=== PATIENT | female | born 1995 | race Caucasian/White ===

== ENCOUNTER 2017-07-04 12:17 | Emergency (ER) | payer SELFPAY ==
[~2017-07-04 12:17] MED LIST: ALB6.7R INH; ETON68IM SQ; FLUC150T40 PO; FLUT1DIS27 IH; HYDR-4309 PO; MEDR150D IM; METH4TAB66 PO; METR-160 PO; PRED-1 PO; PROM-110 PO; [UNRECOGNIZED DRUG - CODE] PO
[2017-07-04] MEDS ORDERED: ETON68IM SQ (12:32)
[2017-07-04] MEDS ORDERED: DOXYCYCLINE HYCL 100 MG TAB PO ONE (13:55)
[2017-07-04] MEDS ORDERED: KETOROLAC 30 MG/ML VIAL IVP ONE (13:55)
--- NOTE | 2017-07-04 16:16 | ER Report ---
History and Physical Time Seen By MD: 12:30 Hx. 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. She presents to the emergency department with painful small mass is under both axilla as well as in her left breast. The masses started within the past week. She has a history of polycystic ovarian disease and a remote history of a benign bone tumor. She states that she has had breast masses in the past which have been attributed to hormonal changes. No history of breast cancer in her family. No weight loss, no fever chills, no discharge from her nipples. She also has some mild flulike symptoms of myalgias but no URI symptoms. No other complaints Remainder of the 14 system rev: Yes Allergies: Coded Allergies: cole (Verified Allergy, Intermediate, UNKNOWN, 07/06/16) coconut oil (Verified Allergy, Intermediate, HIVES, 07/06/16) milk (Verified Allergy, Intermediate, SICK TO STOMACH, 07/06/16) egg (Verified Allergy, Mild, rash, 07/06/16) Home Meds Active Scripts Doxycycline Hyclate (DOXYCYCLINE HYCLATE) 100 Mg Capsule, 100 MG PO BID for 14 Days, #28 CAPSULE Prov:ANSELMO OROURKE MD 07/04/17 Reported Medications Etonogestrel (NEXPLANON) 68 Mg Implant, 68 MG SQ DIRECTED, IMPLANT 07/04/17 Reviewed Nurses Notes: Yes Old Medical Records Reviewed: Yes Hx Smoking: No Smoking Status: Never Smoker Hx Substance Use Disorder: No Hx Alcohol Use: No Constitutional Vital Sign - Last 24 Hours 07/04/17 07/04/17 07/04/17 07/04/17 12:17 12:22 12:26 12:47 Temp 97.5 Pulse ??? 105 104 Resp 16 B/P (MAP) 128/74 128/74 (92) Pulse Ox 98 96 O2 Delivery Room Air 07/04/17 07/04/17 07/04/17 07/04/17 13:00 13:02 13:15 13:17 Pulse 76 74 B/P (MAP) 113/85 (94) 99/71 (80) Pulse Ox 96 100 07/04/17 07/04/17 07/04/17 07/04/17 13:22 13:30 13:37 13:45 Pulse 81 91 B/P (MAP) 103/70 (81) 118/72 (87) Pulse Ox 96 99 07/04/17 07/04/17 07/04/17 07/04/17 13:52 14:00 14:07 14:15 Pulse 82 81 B/P (MAP) 110/71 (84) ???/??? (1665) Pulse Ox 97 96 07/04/17 07/04/17 07/04/17 07/04/17 14:30 14:37 14:45 14:52 Pulse 82 85 B/P (MAP) ???/??? (1665) ???/??? (1665) Pulse Ox 97 07/04/17 07/04/17 07/04/17 07/04/17 15:07 15:12 15:27 15:42 Pulse 91 ??? 86 85 Pulse Ox 97 95 95 07/04/17 07/04/17 07/04/17 07/04/17 15:57 16:04 16:12 16:27 Pulse ??? 87 84 B/P (MAP) 108/69 (82) Pulse Ox 96 98 07/04/17 07/04/17 07/04/17 16:42 16:57 17:01 Temp 97.4 Pulse ? Pulse Ox 81 Physical Exam General Appearance: The patient is alert, has no immediate need for airway protection and no current signs of toxicity. Eyes: Pupils equal and round no injection. Respiratory: Chest is non tender, lungs are clear to auscultation. Breast exam: Normal external exam. No changes to skin, no nipple discharge. Multiple small, mobile masses in right breast Cardiac: regular rate and rhythm Gastrointestinal: Abdomen is soft and non tender, no masses, bowel sounds normal. Skin: Multiple small, erythematous, painful masses to b/l axilla. No fluctuance to suggest abscess DIFFERENTIAL DIAGNOSIS: After history and physical exam differential diagnosis was considered for breast cancer, lymphoma, folliculitis, benign hormonal breast masses Medical Decision Making Data Points Result Diagram: 07/04/17 1253 07/04/17 1253 Laboratory Hematology Test 07/04/17 12:22 07/04/17 12:53 Urine Color Yellow Urine Clarity Clear Urine pH 5.0 pH (4.8-9.5) Urine Specific [place] 1.013 Urine Protein Negative mg/dL (NEGATIVE) Urine Glucose (UA) Negative mg/dL (NEGATIVE) Urine Ketones Trace mg/dL (NEGATIVE) Urine Blood Negative (NEGATIVE) Urine Nitrite Negative (NEGATIVE) Urine Bilirubin Negative (NEGATIVE) Urine Urobilinogen Negative mg/dL (0.2-1.9) Urine Leukocyte Esterase Negative (NEGATIVE) Urine RBC <1 /HPF (0-2/HPF) Urine WBC None /HPF (0-5/HPF) Urine Squamous Epithelial Cells Many /LPF (</=FEW) Urine Transitional Epithelial Cells Few /LPF (NONE-FEW) Urine Bacteria Negative /HPF (NONE-FEW) Urine Mucus Few /HPF (NONE-FEW) Urine HCG, Qualitative Negative (NEGATIVE) Red Blood Count 4.79 M/uL (4.17-5.56) Mean Corpuscular Volume 91.3 fL (80.0-96.0) Mean Corpuscular Hemoglobin 32.0 pg (26.0-33.0) Mean Corpuscular Hemoglobin Concent 35.0 g/dL (32.0-36.0) Red Cell Distribution Width 12.9 % (11.5-14.5) Mean Platelet Volume 7.4 fL (7.2-11.1) Sodium Level 140 mmol/L (137-145) Potassium Level 3.7 mmol/L (3.5-5.0) Chloride Level 102 mmol/L (98-107) Carbon Dioxide Level 24 mmol/L (22-31) Blood Urea Nitrogen 11 mg/dl (7-18) Creatinine 0.80 mg/dl (0.52-1.04) Glomerular Filtration Rate Calc > 60.0 Random Glucose 107 mg/dl (75-110) Calcium Level 9.9 mg/dl (8.4-10.2) Monoscreen Negative (NEGATIVE) Chemistry Test 07/04/17 12:22 07/04/17 12:53 Urine Color Yellow Urine Clarity Clear Urine pH 5.0 pH (4.8-9.5) Urine Specific [place] 1.013 Urine Protein Negative mg/dL (NEGATIVE) Urine Glucose (UA) Negative mg/dL (NEGATIVE) Urine Ketones Trace mg/dL (NEGATIVE) Urine Blood Negative (NEGATIVE) Urine Nitrite Negative (NEGATIVE) Urine Bilirubin Negative (NEGATIVE) Urine Urobilinogen Negative mg/dL (0.2-1.9) Urine Leukocyte Esterase Negative (NEGATIVE) Urine RBC <1 /HPF (0-2/HPF) Urine WBC None /HPF (0-5/HPF) Urine Squamous Epithelial Cells Many /LPF (</=FEW) Urine Transitional Epithelial Cells Few /LPF (NONE-FEW) Urine Bacteria Negative /HPF (NONE-FEW) Urine Mucus Few /HPF (NONE-FEW) Urine HCG, Qualitative Negative (NEGATIVE) White Blood Count 8.8 k/uL (4.5-11.0) Red Blood Count 4.79 M/uL (4.17-5.56) Hemoglobin 15.3 g/dL (12.0-16.0) Hematocrit 43.7 % (34.0-47.0) Mean Corpuscular Volume 91.3 fL (80.0-96.0) Mean Corpuscular Hemoglobin 32.0 pg (26.0-33.0) Mean Corpuscular Hemoglobin Concent 35.0 g/dL (32.0-36.0) Red Cell Distribution Width 12.9 % (11.5-14.5) Platelet Count 295 K/uL (150-450) Mean Platelet Volume 7.4 fL (7.2-11.1) Glomerular Filtration Rate Calc > 60.0 Calcium Level 9.9 mg/dl (8.4-10.2) Monoscreen Negative (NEGATIVE) Urinalysis Test 07/04/17 12:22 Urine Color Yellow Urine Clarity Clear Urine pH 5.0 pH (4.8-9.5) Urine Specific [place] 1.013 Urine Protein Negative mg/dL (NEGATIVE) Urine Glucose (UA) Negative mg/dL (NEGATIVE) Urine Ketones Trace mg/dL (NEGATIVE) Urine Blood Negative (NEGATIVE) Urine Nitrite Negative (NEGATIVE) Urine Bilirubin Negative (NEGATIVE) Urine Urobilinogen Negative mg/dL (0.2-1.9) Urine Leukocyte Esterase Negative (NEGATIVE) Urine RBC <1 /HPF (0-2/HPF) Urine WBC None /HPF (0-5/HPF) Urine Squamous Epithelial Cells Many /LPF (</=FEW) Urine Transitional Epithelial Cells Few /LPF (NONE-FEW) Urine Bacteria Negative /HPF (NONE-FEW) Urine Mucus Few /HPF (NONE-FEW) Urine HCG, Qualitative Negative (NEGATIVE) EKG/Imaging Imaging Results: Ultrasound of the axilla and breasts was obtained. The results of the study are c/w folliculitis. The study was read by the radiologist. I viewed the images myself on the PACS system. ED Course/Re-evaluation ED Course This is a 21-year-old female who presented to the emergency department with bilateral painful erythematous masses under her axilla and reportedly also painful masses in her left breast. No weight loss. Ultrasound negative for evidence of breast malignancy. Ultrasound and history and physical are consistent with folliculitis. The patient was started on doxycycline by mouth twice a day and will follow-up with Kenn Hien in the [facility] [place] [facility] next [place]. Decision to Disposition Date: Jul 04, 2017 Decision to Disposition Time: 17:18 Depart Departure Latest Vital Signs Vital Signs Date Time Temp Pulse Resp B/P (MAP) Pulse Ox O2 Delivery O2 Flow Rate FiO2 07/04/17 17:01 97.4 07/04/17 16:57 ??? 81 07/04/17 16:04 108/69 (82) 07/04/17 12:22 16 Room Air Impression: Primary Impression: Folliculitis Condition: Improved Disposition: HOME OR SELF-CARE Referrals: [facility] New Scripts Doxycycline Hyclate (DOXYCYCLINE HYCLATE) 100 Mg Capsule 100 MG PO BID for 14 Days, #28 CAPSULE Prov: ANSELMO OROURKE MD 07/04/17 Departure Forms: Medications Reconciliation, Patient Portal Information, ER Transition Record Patient Instructions: Folliculitis (ED) ANSELMO OROURKE MD Jul 04, 2017 16:16
--- NOTE | 2017-07-04 16:40 | RADIOLOGY IMAGING REPORT ---
FACILITY: [facility] [place] PATIENT NAME: DONNIE JOEL : [id number] MR: [id number] V: [id number] EXAM DATE: ORDERING PHYSICIAN: ANSELMO OROURKE TECHNOLOGIST: Mil Art PROCEDURE:US BILATERAL BREAST COMPARISON:None. INDICATIONS:masses in vicky axilla/breasts/ HISTORY: Bilateral breast pain and pain in both axilla. FINDINGS: Right breast: The Right breast was scanned from the 12-3 o'clock position and 7 o'clock position as well as the Right axilla. No solid or cystic masses are seen in the areas imaged. An island of prominent tissue in the 8 o'clock position, 6cm from nipple was noted. Imaging of the Right axilla demonstrates a small subcutaneous sebaceous cyst measuring 5mm which does not communicate with the skin. Physical exam demonstrated some folliculitis from shaving. A lymph node measuring 1.4 x 2.2 x 0.6cm was noted with a slightly thickened cortex but normal fatty hilum. The superior Left breast was imaged including the Left axilla. Imaging of the superior Left breast is negative. No solid or cystic lesions are seen. Imaging of the Left axilla is also negative. DIAGNOSTIC CATEGORY 2--BENIGN FINDING. RECOMMENDATIONS: CLINICAL EVALUATION. IMPRESSION: BIRADS 2: Benign finding No explanation for the patient's symptoms of axillary or breast pain. A small Right axillary subcutaneous sebaceous cyst measuring 4mm was noted which does not communicate with the skin. The patient had mild folliculitis in both arm pits from shaving. Recommend clinical management. Recommend the patient begin screening mammography at the age of 40. The patient's breast pain should otherwise be managed clinically. Dictated by: Hector Bernal M.D. on 07/04/2017 at 15:46 Transcribed by: FRANK on 07/04/2017 at 16:08 Approved by: Hector Bernal M.D. on 07/04/2017 at 16:39 [facility]
[2017-07-04] MEDS ORDERED: DOXY-181 PO (17:13)
[2017-07-04 17:15] VITALS: BP 117/65
== END 2017-07-04 17:27 | disposition home or self-care (01) ==
LOC: ER 12:22
DX: L73.9 Follicular disorder, unspecified (principal)
CPT/HCPCS: 76641; 81001; 81025; 85027; 86308; 96374; 99284; J1885; 82310; 82374; 82435; 82565; 82947; 84132; 84295; 84520

== ENCOUNTER 2018-08-01 21:15 | Emergency (ER) | payer OTHER ==
[~2018-08-01 21:15] MED LIST changes: +DOXY-181 PO; -HYDR-4309 PO; +HYDR-653 PO; -METR-160 PO; +METR500T15 PO
--- NOTE | 2018-08-01 21:40 | ER Report ---
History and Physical Time Seen By MD: 21:40 Hx. of Stated Complaint: N/V/D ALL DAY. CHEST PAIN, SHORT OF BREATH, FEELS CONFUSED, KIDNEY PAIN, ABDOMINAL PAIN HPI/ROS CHIEF COMPLAINT: Multiple symptoms, nausea/vomiting/diarrhea, multiple aches and pains, chest and abdominal pain HISTORY OF PRESENT ILLNESS: This is a 22-year-old female. She has been having nausea and vomiting and diarrhea all day long. She feels a little short of breath. Feeling very weak and tired. Has some left lower abdominal pain and feels like some pain in her kidneys. Also some chest pain. Also pain throughout her muscles and joints. Has been having some fevers and chills. Has not been able to keep a lot of fluid down and is urinating much less. [place] like she had to go the bathroom right before coming in and only urinated a small amount. She also has a history of endometriosis and is currently on her period. Allergies: Coded Allergies: cole (Verified Allergy, Intermediate, UNKNOWN, 07/06/16) coconut oil (Verified Allergy, Intermediate, HIVES, 07/06/16) milk (Verified Allergy, Intermediate, SICK TO STOMACH, 07/06/16) egg (Verified Allergy, Mild, rash, 07/06/16) Home Meds Active Scripts Ondansetron 4 Mg Odt (ONDANSETRON 4 MG ODT) 4 Mg Tab.rapdis, 4 MG PO Q6H PRN for NAUSEA/VOMITING, #20 TAB 0 Refills Prov:SUSAN GIBBONS MD 08/02/18 Ketorolac Tromethamine (KETOROLAC TROMETHAMINE) 10 Mg Tab, 10 MG PO Q6H PRN for PAIN, #12 TAB 0 Refills Prov:SUSAN GIBBONS MD 08/02/18 Doxycycline Hyclate (DOXYCYCLINE HYCLATE) 100 Mg Capsule, 100 MG PO BID for 14 Days, #28 CAPSULE Prov:ANSELMO OROURKE MD 07/04/17 Reported Medications Etonogestrel (NEXPLANON) 68 Mg Implant, 68 MG SQ DIRECTED, IMPLANT 07/04/17 Reviewed Nurses Notes: Yes Hx Smoking: No Smoking Status: Never Smoker Hx Substance Use Disorder: No Hx Alcohol Use: No Constitutional Vital Sign - Last 24 Hours 08/01/18 08/01/18 08/01/18 08/01/18 21:18 21:18 21:45 22:15 Temp 98.9 Pulse 107 109 84 Resp 20 21 21 B/P (MAP) 115/84 115/84 (94) Pulse Ox 95 98 O2 Delivery Room Air 08/01/18 08/01/18 08/01/18 08/01/18 22:38 22:45 23:00 23:30 Pulse 98 96 98 Resp 18 16 8 B/P (MAP) 104/67 (79) 107/64 (78) 100/63 (75) Pulse Ox 97 98 08/02/18 08/02/18 08/02/18 00:00 00:30 01:00 Pulse 99 92 93 Resp 15 22 15 B/P (MAP) 94/63 (73) 104/64 (77) Pulse Ox 99 95 Intake and Output 08/01/18 08/01/18 08/02/18 15:00 23:00 07:00 Intake Total 2000 ml Balance 2000 ml Physical Exam General Appearance: The patient is alert. Anxious in some acute distress because of her symptoms. Eyes: Pupils are equal, round. No pallor, injection or icterus. ENT: Mucous membranes are a little dry. Otherwise normal oral mucosa. Posterior oropharynx is normal. Neck: Supple and non tender. Respiratory: Lungs have some rhonchi but no rales or wheezing. Cardiovascular: Regular rate and rhythm. No murmurs, gallops or rubs. Normal capillary refill. Gastrointestinal: Abdomen is soft, some discomfort in the lower abdomen. No CVA tenderness. Nondistended. No masses or organomegaly. Normal active bowel sounds. Neurological: Alert and oriented x3. No focal neurologic deficits Skin: Warm and dry. No rashes. Musculoskeletal: Diffuse tenderness in the joints and muscles. DIFFERENTIAL DIAGNOSIS: After history and physical exam, differential diagnosis was considered for patient with multiple symptoms that sound like a viral syndrome with some dehydration. We'll check CBC, CMP, urinalysis and chest x- ray. Medical Decision Making Data Points Result Diagram: 08/01/18212908/01/182129 Laboratory Hematology Test 08/01/18 21:30 Red Blood Count 4.65 M/uL (4.17-5.56) Mean Corpuscular Volume 91.8 fL (80.0-96.0) Mean Corpuscular Hemoglobin 31.0 pg (26.0-33.0) Mean Corpuscular Hemoglobin Concent 33.7 g/dL (32.0-36.0) Red Cell Distribution Width 12.6 % (11.5-14.5) Mean Platelet Volume 8.1 fL (7.2-11.1) Neutrophils (%) (Auto) 86.2 % (39.4-72.5) Lymphocytes (%) (Auto) 8.6 % (17.6-49.6) Monocytes (%) (Auto) 4.5 % (4.1-12.4) Eosinophils (%) (Auto) 0.5 % (0.4-6.7) Basophils (%) (Auto) 0.2 % (0.3-1.4) Nucleated RBC Relative Count (auto) 0.0 /100WBC Neutrophils # (Auto) 7.8 K/uL (2.0-7.4) Lymphocytes # (Auto) 0.8 K/uL (1.3-3.6) Monocytes # (Auto) 0.4 K/uL (0.3-1.0) Eosinophils # (Auto) 0.0 K/uL (0.0-0.5) Basophils # (Auto) 0.0 K/uL (0.0-0.1) Nucleated RBC Absolute Count (auto) 0.00 K/uL Urine Color Yellow Urine Clarity Clear Urine pH 5.0 pH (4.8-9.5) Urine Specific [place] 1.016 Urine Protein Negative mg/dL (NEGATIVE) Urine Glucose (UA) Negative mg/dL (NEGATIVE) Urine Ketones 20 mg/dL (NEGATIVE) Urine Blood Large (NEGATIVE) Urine Nitrite Negative (NEGATIVE) Urine Bilirubin Negative (NEGATIVE) Urine Urobilinogen Negative mg/dL (0.2-1.9) Urine Leukocyte Esterase Negative (NEGATIVE) Urine RBC 1 /HPF (0-2/HPF) Urine WBC 2 /HPF (0-5/HPF) Urine Squamous Epithelial Cells Many /LPF (</=FEW) Urine Bacteria Few /HPF (NONE-FEW) Urine Mucus Few /HPF (NONE-FEW) Sodium Level 134 mmol/L (137-145) Potassium Level 3.4 mmol/L (3.5-5.0) Chloride Level 102 mmol/L (98-107) Carbon Dioxide Level 21 mmol/L (22-31) Blood Urea Nitrogen 12 mg/dl (7-18) Creatinine 0.80 mg/dl (0.52-1.04) Glomerular Filtration Rate Calc > 60.0 Random Glucose 105 mg/dl (75-110) Calcium Level 9.5 mg/dl (8.4-10.2) Total Bilirubin 1.1 mg/dl (0.2-1.3) Aspartate Amino Transf (AST/SGOT) 28 U/L (0-35) Alanine Aminotransferase (ALT/SGPT) 20 U/L (0-56) Alkaline Phosphatase 86 U/L (0-126) Total Protein 8.0 g/dl (6.3-8.2) Albumin 4.8 g/dl (3.5-5.0) Amylase Level 39 U/L (0-110) Lipase 56 U/L (23-300) Human Chorionic Gonadotropin, Qual Negative (NEGATIVE) Chemistry Test 08/01/18 21:30 White Blood Count 9.0 k/uL (4.5-11.0) Red Blood Count 4.65 M/uL (4.17-5.56) Hemoglobin 14.4 g/dL (12.0-16.0) Hematocrit 42.7 % (34.0-47.0) Mean Corpuscular Volume 91.8 fL (80.0-96.0) Mean Corpuscular Hemoglobin 31.0 pg (26.0-33.0) Mean Corpuscular Hemoglobin Concent 33.7 g/dL (32.0-36.0) Red Cell Distribution Width 12.6 % (11.5-14.5) Platelet Count 257 K/uL (150-450) Mean Platelet Volume 8.1 fL (7.2-11.1) Neutrophils (%) (Auto) 86.2 % (39.4-72.5) Lymphocytes (%) (Auto) 8.6 % (17.6-49.6) Monocytes (%) (Auto) 4.5 % (4.1-12.4) Eosinophils (%) (Auto) 0.5 % (0.4-6.7) Basophils (%) (Auto) 0.2 % (0.3-1.4) Nucleated RBC Relative Count (auto) 0.0 /100WBC Neutrophils # (Auto) 7.8 K/uL (2.0-7.4) Lymphocytes # (Auto) 0.8 K/uL (1.3-3.6) Monocytes # (Auto) 0.4 K/uL (0.3-1.0) Eosinophils # (Auto) 0.0 K/uL (0.0-0.5) Basophils # (Auto) 0.0 K/uL (0.0-0.1) Nucleated RBC Absolute Count (auto) 0.00 K/uL Urine Color Yellow Urine Clarity Clear Urine pH 5.0 pH (4.8-9.5) Urine Specific [place] 1.016 Urine Protein Negative mg/dL (NEGATIVE) Urine Glucose (UA) Negative mg/dL (NEGATIVE) Urine Ketones 20 mg/dL (NEGATIVE) Urine Blood Large (NEGATIVE) Urine Nitrite Negative (NEGATIVE) Urine Bilirubin Negative (NEGATIVE) Urine Urobilinogen Negative mg/dL (0.2-1.9) Urine Leukocyte Esterase Negative (NEGATIVE) Urine RBC 1 /HPF (0-2/HPF) Urine WBC 2 /HPF (0-5/HPF) Urine Squamous Epithelial Cells Many /LPF (</=FEW) Urine Bacteria Few /HPF (NONE-FEW) Urine Mucus Few /HPF (NONE-FEW) Glomerular Filtration Rate Calc > 60.0 Calcium Level 9.5 mg/dl (8.4-10.2) Total Bilirubin 1.1 mg/dl (0.2-1.3) Aspartate Amino Transf (AST/SGOT) 28 U/L (0-35) Alanine Aminotransferase (ALT/SGPT) 20 U/L (0-56) Alkaline Phosphatase 86 U/L (0-126) Total Protein 8.0 g/dl (6.3-8.2) Albumin 4.8 g/dl (3.5-5.0) Amylase Level 39 U/L (0-110) Lipase 56 U/L (23-300) Human Chorionic Gonadotropin, Qual Negative (NEGATIVE) Urinalysis Test 08/01/18 21:30 Urine Color Yellow Urine Clarity Clear Urine pH 5.0 pH (4.8-9.5) Urine Specific [place] 1.016 Urine Protein Negative mg/dL (NEGATIVE) Urine Glucose (UA) Negative mg/dL (NEGATIVE) Urine Ketones 20 mg/dL (NEGATIVE) Urine Blood Large (NEGATIVE) Urine Nitrite Negative (NEGATIVE) Urine Bilirubin Negative (NEGATIVE) Urine Urobilinogen Negative mg/dL (0.2-1.9) Urine Leukocyte Esterase Negative (NEGATIVE) Urine RBC 1 /HPF (0-2/HPF) Urine WBC 2 /HPF (0-5/HPF) Urine Squamous Epithelial Cells Many /LPF (</=FEW) Urine Bacteria Few /HPF (NONE-FEW) Urine Mucus Few /HPF (NONE-FEW) EKG/Imaging Imaging CHEST PA LAT Additional pertinent History: Short of breath COMPARISON STUDIES: none FINDINGS: Support lines and catheters: None Lungs and Pleura: Lung liu well expanded with no infiltrates or consolidati ons. No parenchymal mass lesions are seen. There are no effusions Heart and vasculature: Negative. Delia and Mediastinum: Negative. Bones and Chest wall: Negative. Upper Abdomen: Negative. IMPRESSION: 1. Negative chest. No interval change when compared to the previous study of 01/20/2016 Report Dictated By: Pilo Contreras MD at 08/01/2018 11:01 PM ED Course/Re-evaluation Clinical Indication for ER IV: Hydration, IV Access ED Course Labs are unremarkable. Chest x-ray negative. Patient was given 2 L of IV normal saline. Also given some Toradol to help with pain. Sent home with the oral form of both of these. Decision to Disposition Date: Aug 02, 2018 Decision to Disposition Time: 01:19 Depart Departure Latest Vital Signs Vital Signs Date Time Temp Pulse Resp B/P (MAP) Pulse Ox O2 Delivery O2 Flow Rate FiO2 08/02/18 01:00 93 15 95 08/02/18 00:30 104/64 (77) 08/01/18 21:18 98.9 Room Air Impression: Primary Impression: Viral syndrome Additional Impression: Dehydration Condition: Improved Disposition: HOME OR SELF-CARE New Scripts Ondansetron 4 Mg Odt (ONDANSETRON 4 MG ODT) 4 Mg Tab.rapdis 4 MG PO Q6H PRN for NAUSEA/VOMITING, #20 TAB 0 Refills Prov: SUSAN GIBBONS MD 08/02/18 Ketorolac Tromethamine (KETOROLAC TROMETHAMINE) 10 Mg Tab 10 MG PO Q6H PRN for PAIN, #12 TAB 0 Refills Prov: SUSAN GIBBONS MD 08/02/18 Patient Instructions: Dehydration (ED), Viral Syndrome (ED) Problem Qualifiers SUSAN GIBBONS MD Aug 01, 2018 21:40
[2018-08-01] MEDS ORDERED: NS(*) 0.9% 1000 ML BAG 1,000 ML IV ONE ×2 (21:50→23:30)
[2018-08-01] MEDS ORDERED: ONDANSETRON 4 MG/2 ML VIAL IVP ONE (21:50)
[2018-08-01 22:17] LABS: PLATELET COUNT, AUTOMATED 257 K/uL (150-450)
--- NOTE | 2018-08-01 23:05 | RADIOLOGY IMAGING REPORT ---
FACILITY: [facility] - [place] PATIENT NAME: Opal Ceballos : 1995 MR: [id number] V: [id number] EXAM DATE: [id number] ORDERING PHYSICIAN: SUSAN GIBBONS TECHNOLOGIST: Location: [facility] - [place] Patient: Opal Ceballos : 1995 Visit/Account:[id number] Date of Sevice: 08/01/2018 CHEST PA LAT Additional pertinent History: Short of breath COMPARISON STUDIES: none FINDINGS: Support lines and catheters: None Lungs and Pleura: Lung liu well expanded with no infiltrates or consolidations. No parenchymal ma ss lesions are seen. There are no effusions Heart and vasculature: Negative. Delia and Mediastinum: Negative. Bones and Chest wall: Negative. Upper Abdomen: Negative. IMPRESSION: 1. Negative chest. No interval change when compared to the previous study of 01/20/2016 Report Dictated By: Pilo Contreras MD at 08/01/2018 11:01 PM Report E-Signed By: Pilo Contreras MD at 08/01/2018 11:02 PM WSN:[id number]
[2018-08-02] MEDS ORDERED: KETOROLAC 30 MG/ML VIAL IVP ONE (00:25)
[2018-08-02 00:30] VITALS: BP 104/64
[2018-08-02] MEDS ORDERED: KETOROLAC TROM 10 MG TAB TH PO ONE (01:20)
[2018-08-02] MEDS ORDERED: ONDANSETRON 4 MG ODT TH SL ONE (01:20)
[2018-08-02] MEDS ORDERED: KET10 PO (01:21)
[2018-08-02] MEDS ORDERED: ONDA4TAB9 PO (01:21)
== END 2018-08-02 01:30 | disposition home or self-care (01) ==
LOC: ER 21:37
DX: B34.9 Viral infection, unspecified (principal); E86.0 Dehydration
CPT/HCPCS: 71046; 81001; 82150; 83690; 84703; 85025; 96361; 96374; 96375; 99284; J1885; J2405; J7030; 82040; 82247; 82310; 82374; 82435; 82565; 82947; 84075; 84132; 84155; 84295; 84450; 84460; 84520

== ENCOUNTER 2018-08-12 22:23 | Emergency (ER) | payer OTHER ==
[~2018-08-12 22:23] MED LIST changes: +KET10 PO; +ONDA4TAB9 PO
[2018-08-12 22:28] VITALS: BP 120/79
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
== END 2018-08-12 22:53 | disposition home or self-care (01) ==
LOC: ER 22:29
DX: S00.83XA Contusion of other part of head, initial encounter (principal); V49.40XA Driver injured in collision with unspecified motor vehicles in traffic accident, initial encounter
CPT/HCPCS: 99282